=== PATIENT | male | born 1950 | race Caucasian/White ===

== ENCOUNTER 2019-12-15 16:28 | Emergency (ER) | payer MEDICARE ==
--- NOTE | 2019-12-15 16:51 | ED ---
Lower Extremity Injury HPI - General Chief Complaint: Allergic Reaction Stated Complaint: Possible Hip Dislocation Time Seen by Provider: 12/15/19 16:38 Source: RN notes reviewed, old records reviewed - History of Present Illness Initial Comments: This is a 61-year-old male DF for evaluation of left extremity injury pain maybe possible dislocation, x-ray wasn't acting normally at rehab today. Patient states he feels fine now, has no complaints no pain able to move extremities without difficulty MD Complaint: hip injury, thigh injury, knee injury Injury: Hip: Left, Thigh: Left, Knee: Left Place: other (During rehab) Severity: mild Severity scale (1-10): 2 Improves With: immobilization Worsens With: nothing Context: other (Exercise) Other Symptoms: other (None) Associated Symptoms: other (None) - Related Data Allergies Allergy/AdvReac Type Severity Reaction Status Date / Time No Known Allergies Allergy Verified 12/15/19 16:54 Review of Systems ROS Statement: Those systems with pertinent positive or pertinent negative responses have been documented in the HPI. ROS Other: All systems not noted in ROS Statement are negative. General Exam General appearance: alert, in no apparent distress Head exam: Present: atraumatic, normocephalic, normal inspection Eye exam: Present: normal appearance, PERRL, EOMI. Absent: scleral icterus, con junctival injection, periorbital swelling ENT exam: Present: normal exam, mucous membranes moist Neck exam: Present: normal inspection. Absent: tenderness, meningismus, lymphadenopathy Respiratory exam: Present: normal lung sounds bilaterally. Absent: respiratory distress, wheezes, rales, rhonchi, stridor Cardiovascular Exam: Present: regular rate, normal rhythm, normal heart sounds. Absent: systolic murmur, diastolic murmur, rubs, gallop, clicks GI/Abdominal exam: Present: soft, normal bowel sounds. Absent: distended, tenderness, guarding, rebound, rigid Extremities exam: Present: normal inspection, full ROM, normal capillary refill. Absent: tenderness, pedal edema, joint swelling, calf tenderness Back exam: Present: normal inspection Neurological exam: Present: alert, oriented X3, CN II-XII intact Psychiatric exam: Present: normal affect, normal mood Skin exam: Present: warm, dry, intact, normal color. Absent: rash Course Vital Signs 09/01/20 16:39 Temperature 98.3 F Pulse Rate 72 Respiratory 18 Rate Blood Pressure 132/81 O2 Sat by Pulse 97 Oximetry - Reevaluation(s) Reevaluation #1: 12/15/19 18:25 Medical record is reviewed Reevaluation #2: 12/15/19 18:25 Patient informed of findings and results, questions answered Reevaluation #3: 12/15/19 18:25 Patient without complaint Medical Decision Making - Medical Decision Making 69 male DF for evaluation of possible dislocation versus left exploratory extremity abnormality. No findings found here in the ER patient can be discharged home - Radiology Data Radiology results: report reviewed (X-ray left hip neck left knee is negative for acute disease), image reviewed Disposition Clinical Impression: Normal exam, Lower extremity pain Disposition: HOME SELF-CARE Condition: Good Instructions (If sedation given, give patient instructions): Leg Pain (ED), Knee Pain (ED) Is patient prescribed a controlled substance at d/c from ED?: No Referrals: None,Stated [Primary Care Provider] - 1-2 days
[2019-12-15 16:54] VITALS: RESP 18; TEMP 98.3
--- NOTE | 2019-12-15 17:55 | XR ---
EXAMINATION TYPE: XR knee complete LT DATE OF EXAM: 12/15/2019 COMPARISON: NONE HISTORY: Knee pain TECHNIQUE: 3 views FINDINGS: I see no fracture nor dislocation. Joint spaces are normal. There is no sign of knee joint effusion. IMPRESSION: Negative left knee exam.
--- NOTE | 2019-12-15 18:03 | XR ---
EXAMINATION TYPE: XR Hip LT and AP Pelvis DATE OF EXAM: 12/15/2019 COMPARISON: NONE HISTORY: Pain TECHNIQUE: 4 views FINDINGS: The pelvic ring is intact. There is left hip prosthesis. Components are in anatomic positio n. Sacroiliac joints appear intact. There is no evidence of a fracture. IMPRESSION: No acute abnormality of the pelvis and left hip.
[2019-12-15 19:51] VITALS: BP 138/82; PULSE 74
== END 2019-12-15 19:50 | disposition home or self-care (01) ==
LOC: EC 16:28
DX: Z00.01 Encounter for general adult medical examination with abnormal findings (principal); M79.606 Pain in leg, unspecified
CPT/HCPCS: 73502; 99284

== ENCOUNTER 2019-12-26 17:36 | Emergency (ER) | payer MEDICARE ==
[2019-12-26 17:46] VITALS: RESP 16; TEMP 97.5
[2019-12-26] MEDS ORDERED: KETOROLAC 15 MG/ML 1 ML VIAL IM STA (17:56)
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
--- NOTE | 2019-12-26 18:26 | XR ---
EXAMINATION TYPE: XR Hip LT and AP Pelvis DATE OF EXAM: 12/26/2019 COMPARISON: 12/15/2019 HISTORY: Pain TECHNIQUE: 4 views FINDINGS: The pelvic ring is intact. There is left hip prosthesis. Components appear in anatomic posi tion. Sacroiliac joints appear intact. IMPRESSION: No acute abnormality of the pelvis and left hip. No change compared to old exam.
--- NOTE | 2019-12-26 18:27 | XR ---
EXAMINATION TYPE: XR knee complete LT DATE OF EXAM: 12/26/2019 COMPARISON: 12/15/2019 HISTORY: Knee pain TECHNIQUE: 3 views FINDINGS: I see no fracture nor dislocation. Joint spaces are fairly normal. There is no sign of join t effusion. IMPRESSION: Negative left knee exam. No change.
[2019-12-26] MEDS ORDERED: ACET/COD 300 MG/30 MG STARTER PACK 6 TAB BTL PO STA (18:39)
[2019-12-26 18:53] VITALS: BP 143/102; PULSE 65
== END 2019-12-26 18:56 | disposition home or self-care (01) ==
LOC: EC 17:36
DX: S83.92XA Sprain of unspecified site of left knee, initial encounter (principal); M25.262 Flail joint, left knee; Z96.642 Presence of left artificial hip joint; X58.XXXA Exposure to other specified factors, initial encounter
CPT/HCPCS: 73502; 73562; 99284; 96372; J1885

== ENCOUNTER 2019-12-30 14:12 | Emergency (ER) | payer MEDICARE ==
[2019-12-30 14:16] VITALS: TEMP 98.9
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
[2019-12-30] MEDS ORDERED: ACET/COD 300 MG/30 MG STARTER PACK 6 TAB BTL PO STA (15:35)
[2019-12-30 15:44] VITALS: BP 123/79; PULSE 80; RESP 18
== END 2019-12-30 16:44 | disposition home or self-care (01) ==
LOC: EC 14:12
DX: M25.562 Pain in left knee (principal); Z96.642 Presence of left artificial hip joint; Z87.828 Personal history of other (healed) physical injury and trauma
CPT/HCPCS: 99283

== ENCOUNTER 2020-01-04 15:30 | Emergency (ER) | payer MEDICARE ==
[2020-01-04 15:39] VITALS: RESP 18
[2020-01-04] MEDS ORDERED: HYDROcodone/APAP 5-325MG 1 EACH TAB PO STA (16:39)
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
[2020-01-04 16:58] VITALS: BP 137/88; PULSE 68; TEMP 97.9
== END 2020-01-04 17:32 | disposition home or self-care (01) ==
LOC: EC 15:30
DX: M25.562 Pain in left knee (principal); Z96.642 Presence of left artificial hip joint
CPT/HCPCS: 99283

== ENCOUNTER 2020-01-28 18:58 | Emergency (ER) | payer MEDICARE ==
[2020-01-28 19:13] VITALS: TEMP 98.5
[2020-01-28 19:18] VITALS: BP 131/95; PULSE 72; RESP 16
[2020-01-28] MEDS ORDERED: KETOROLAC 15 MG/ML 1 ML VIAL IVP STA (19:25)
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
== END 2020-01-28 20:00 | disposition home or self-care (01) ==
LOC: EC 18:58
DX: M25.562 Pain in left knee (principal); Z96.642 Presence of left artificial hip joint
CPT/HCPCS: 99283; 96374; J1885

== ENCOUNTER → 2020-03-05 | Outpatient (CLI) | payer MEDICARE ==
--- NOTE | 2020-03-06 00:04 | MR ---
EXAMINATION TYPE: MR knee LT wo con DATE OF EXAM: 03/05/2020 COMPARISON: Radiographs 12/26/2019. HISTORY: Left knee pain TECHNIQUE: Multiplanar, multisequence imaging of the left knee is performed without IV contrast. FINDINGS: MEDIAL MENISCUS: Anterior and posterior horns are intact without tear. LATERAL MENISCUS: Anterior and posterior horns are intact without tear. CRUCIATE LIGAMENTS: The anterior and posterior cruciate ligaments are intact and unremarkable. COLLATERAL LIGAMENTS: Multiple high T1/high T2 loose bodies deep to the popliteal muscle belly. Other cantu the medial collateral ligament and lateral collateral ligament complex are intact and unremarkab le. EXTENSOR MECHANISM: Visualized quadriceps and patellar tendons are intact. EFFUSION: Small knee joint effusion. POPLITEAL CYST: Trace popliteal/bowens cyst. TRICOMPARTMENT SPACES/CARTILAGE: Mild to moderate thinning of the tricompartmental articular cartilag e with overlying small to moderate sized partial thickness chondral defects, most notable of the mart llofemoral compartment. BONE MARROW SIGNAL: 1.5 x 0.6 cm lobulated cystic structure in the fibular head without aggressive fe atures. No bony destruction, endosteal scalloping or periosteal reaction. Remainder of the bone marro w signal is unremarkable. OTHER: No additional significant abnormality is appreciated. IMPRESSION: Noncalcific loose bodies deep to the popliteal muscle, may relate to prior partial thickness injury. 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 No definite meniscal tear.
== END | disposition home or self-care (01) ==
LOC: RADMRIMAIN 09:59
PROVIDERS: ATTEND Orthopaedic Surgery
DX: M17.12 Unilateral primary osteoarthritis, left knee (principal); M95.8 Other specified acquired deformities of musculoskeletal system; M23.42 Loose body in knee, left knee

== ENCOUNTER 2020-03-22 17:36 | Emergency (ER) | payer MEDICARE ==
[2020-03-22 17:42] VITALS: RESP 18; TEMP 98.3
[2020-03-22] MEDS ORDERED: ACET/COD 300 MG/30 MG STARTER PACK 6 TAB BTL PO STA (17:53)
--- NOTE | 2020-03-22 17:56 | ED ---
Lower Extremity Injury HPI - General Chief Complaint: Extremity Injury, Lower Stated Complaint: left knee pain Time Seen by Provider: 03/22/20 17:41 Source: patient, EMS, RN notes reviewed Mode of arrival: EMS Limitations: no limitations - History of Present Illness Initial Comments: 69-year-old male presents emergency Department chief complaint of knee pain. Patient had intermittent episodes of this knee pain. Patient states that has now resolved but states hour ago he is in extreme pain. Patient reportedly [facility] Denn[facility] was told nothing was wrong. Patient states he cannot tolerate the pain when it comes. Patient denies any back pain no bowel bladder incontinence or retention. No centimeters is no other compl aints. - Related Data Previous Rx's Medication Instructions Recorded Naproxen [EC-Naproxen] 500 mg PO BID #20 tablet. 12/26/19 Ibuprofen [Motrin] 600 mg PO Q8HR PRN #30 tab 01/28/20 Allergies Allergy/AdvReac Type Severity Reaction Status Date / Time No Known Allergies Allergy Verified 01/28/20 19:13 Review of Systems ROS Statement: Those systems with pertinent positive or pertinent negative responses have been documented in the HPI. ROS Other: All systems not noted in ROS Statement are negative. Past Medical History Past Medical History: No Reported History Additional Past Medical History / Comment(s): TBI accident in 1972 History of Any Multi-Drug Resistant Organisms: None Reported Past Surgical History: Joint Replacement Additional Past Surgical History / Comment(s): pt states left hip replacement approx 20 years ago, right and left foot sugery due to tendon cut Past Psychological History: No Psychological Hx Reported Smoking Status: Never smoker Past Alcohol Use History: Rare Past Drug Use History: None Reported General Exam Limitations: no limitations General appearance: alert, in no apparent distress Head exam: Present: atraumatic, normocephalic, normal inspection Neck exam: Present: normal inspection, full ROM. Absent: tenderness, meningismus, lymphadenopathy Respiratory exam: Present: normal lung sounds bilaterally. Absent: respiratory distress, wheezes, rales, rhonchi, stridor Cardiovascular Exam: Present: regular rate, normal rhythm, normal heart sounds. Absent: systolic murmur, diastolic murmur, rubs, gallop, clicks Extremities exam: Present: other (Left knee full range of motion neurovascular intact no swelling or erythema pulses equal bilaterally) Back exam: Present: full ROM. Absent: tenderness Neurological exam: Present: alert, oriented X3 Skin exam: Present: warm, dry, intact, normal color. Absent: rash Course Vital Signs 03/22/20 17:37 Temperature 98.3 F Pulse Rate 70 Respiratory 18 Rate Blood Pressure 161/89 O2 Sat by Pulse 98 Oximetry Medical Decision Making - Medical Decision Making Patient had multiple x-rays, MRI reportedly as normal though I do not have these records. Patient is asymptomatic. Patient advised to follow-up for recheck, follow-up of left knee pain. Disposition Clinical Impression: Left knee pain Disposition: HOME SELF-CARE Condition: Stable Instructions (If sedation given, give patient instructions): Knee Pain (ED) Additional Instructions: Please return to the Emergency Department if symptoms worsen or any other concerns. Is patient prescribed a controlled substance at d/c from ED?: No Referrals: None,Stated [Primary Care Provider] - 1-2 days Davon Mckeon DO [Doctor of Osteopathic Medicine] - 1-2 days Time of Disposition: 17:55
[2020-03-22 18:28] VITALS: BP 126/80; PULSE 62
== END 2020-03-22 18:26 | disposition home or self-care (01) ==
LOC: EC 17:36
DX: M25.562 Pain in left knee (principal); Z96.642 Presence of left artificial hip joint
CPT/HCPCS: 99284

== ENCOUNTER 2020-04-05 19:05 | Emergency (ER) | payer MEDICARE ==
[2020-04-05 19:16] VITALS: RESP 17; TEMP 97.8
[2020-04-05] MEDS ORDERED: KETOROLAC 15 MG/ML 1 ML VIAL IM STA (19:21)
--- NOTE | 2020-04-05 19:32 | ED ---
Extremity Problem HPI - General Chief complaint: Extremity Problem,Nontraumatic Stated complaint: Knee Pain Time Seen by Provider: 04/05/20 19:06 Source: patient, EMS Mode of arrival: EMS - History of Present Illness Initial comments: 69 year-old male patient presents to the emergency department for evaluation of left knee and leg pain. Patient has been coming to the emergency department frequently for this. He has seen orthopedics has had multiple xrays and an MRI. Patient is unsure of the results. Patient denies any new injury to the leg. States it hurts to walk or bend the knee. He does report new calf pain today. Denies any obvious swelling. Denies numbness or tingling to the leg. Denies any discoloration or bruising. He had it wrapped in an kolby wrap upon arrival. Patient denies any headache, neck pain, back pain, chest pain, shortness of breath, dizziness, weakness, abdominal pain, nausea, vomiting, or difficulties with bowel movements or urination. - Related Data Previous Rx's Medication Instructions Recorded Naproxen [EC-Naproxen] 500 mg PO BID #20 tablet. 12/26/19 Ibuprofen [Motrin] 600 mg PO Q8HR PRN #30 tab 01/28/20 Allergies Allergy/AdvReac Type Severity Reaction Status Date / Time No Known Allergies Allergy Verified 01/28/20 19:13 Review of Systems ROS Statement: Those systems with pertinent positive or pertinent negative responses have been documented in the HPI. ROS Other: All systems not noted in ROS Statement are negative. Past Medical History Past Medical History: No Reported History Additional Past Medical History / Comment(s): TBI accident in 1972 History of Any Multi-Drug Resistant Organisms: None Reported Past Surgical History: Joint Replacement Additional Past Surgical History / Comment(s): pt states left hip replacement approx 20 years ago, right and left foot sugery due to tendon cut Past Psychological History: No Psychological Hx Reported Smoking Status: Never smoker Past Alcohol Use History: Rare Past Drug Use History: None Reported General Exam General appearance: alert, in no apparent distress, other (This is a well- developed, well-nourished adult male patient in no acute distress. Vital signs upon presentation are temperature 97.8F, pulse 74, respirations 17, blood pressure 164/99, pulse ox 97% on room air.) Respiratory exam: Present: normal lung sounds bilaterally. Absent: respiratory distress, wheezes, rales, rhonchi, stridor Cardiovascular Exam: Present: regular rate, normal rhythm, normal heart sounds. Absent: systolic murmur, diastolic murmur, rubs, gallop, clicks Extremities exam: Present: normal inspection, full ROM, normal capillary refill, other (Skin is pink, warm, dry. mild swelling to left leg. Pedal and PT pulses 2+. Full range of motion of the knee is intact. ). Absent: tenderness, pedal edema, joint swelling, calf tenderness Neurological exam: Present: alert, oriented X3, CN II-XII intact Psychiatric exam: Present: normal affect, normal mood Skin exam: Present: warm, dry, intact, normal color. Absent: rash Course Vital Signs 04/05/20 19:13 Temperature 97.8 F Pulse Rate 74 Respiratory 17 Rate Blood Pressure 164/99 O2 Sat by Pulse 97 Oximetry Medical Decision Making - Medical Decision Making 69-year-old male patient presents to the emergency department today for e valuation of left knee and left leg pain. Patient has been frequently coming to the emergency department for similar symptoms. He is followed up with orthopedics multiple times did have multiple x-rays and an MRI performed. I do not have results this patient is unsure of the results. He currently is a has no pain but did have an Kolby wrap after on the calf. When questioned about this he states that it was hurting today and this is new for him. Ultrasound was odered of THE LEG TO RULE OUT DVT, WAS NEGATIVE. WE DISCHARGED FOLLOW UP WITH HIS PRIMARY CARE PHYSICIAN ROAD HOGGER OPERATOR FOR FURTHER EVALUATION. HE VERBALIZES UNDERSTANDING AND AGREES WITH THIS PLAN. - Radiology Data Radiology results: report reviewed, image reviewed Ultrasound of the left lower extremity was obtained. Report was reviewed in its entirety. Impression by Dr. Burger shows no sign of deep vein thrombosis in the left leg. Disposition Clinical Impression: Knee pain Disposition: HOME SELF-CARE Condition: Good Instructions (If sedation given, give patient instructions): Knee Pain (ED) Additional Instructions: Follow up with the campaign management specialist for further evaluation as soon as possible. Return to the emergency department for any new, worsening, or concerning symptoms. Is patient prescribed a controlled substance at d/c from ED?: No Referrals: None,Stated [Primary Care Provider] - 1-2 days Time of Disposition: 20:32
--- NOTE | 2020-04-05 20:22 | US ---
EXAMINATION TYPE: US venous doppler duplex LE LT DATE OF EXAM: 04/05/2020 8:13 PM COMPARISON: NONE CLINICAL HISTORY: Left calf pain. Left calf pain. Patient poor historian. SIDE PERFORMED: Left TECHNIQUE: The lower extremity deep venous system is examined utilizing real time linear array sonog bridgette with graded compression, doppler sonography and color-flow sonography. VESSELS IMAGED: Common Femoral Vein Deep Femoral Vein Greater Saphenous Vein * Femoral Vein Popliteal Vein Small Saphenous Vein * Proximal Calf Veins (* superficial vessels) Left Leg: No evidence of DVT in veins imaged at this time from prox calf veins to CFV/GSV. IMPRESSION: No sign of deep vein thrombosis in the left leg.
[2020-04-05 21:07] VITALS: BP 154/87; PULSE 75
== END 2020-04-05 21:14 | disposition home or self-care (01) ==
LOC: EC 19:05
DX: M25.562 Pain in left knee (principal); Z96.642 Presence of left artificial hip joint; Z98.890 Other specified postprocedural states
CPT/HCPCS: 99284

== ENCOUNTER 2020-06-02 20:02 | Emergency (ER) | payer MEDICARE ==
[2020-06-02 20:22] VITALS: BP 127/67; PULSE 70; RESP 19; TEMP 98.7
--- NOTE | 2020-06-02 20:46 | ED ---
Extremity Problem HPI - General Chief complaint: Extremity Problem,Nontraumatic Stated complaint: Knee Pain Time Seen by Provider: 06/02/20 20:17 Source: patient, EMS Mode of arrival: EMS Limitations: no limitations - History of Present Illness Initial comments: 69-year-old male presents to the emergency department with a chief complaint of left knee pain. He reports history of chronic knee pain and it feels like it is "locking up". States he can happen whenever leading or resting. He states today he was attempting to tie his shoe when his knee felt "wobbly". He states it was a sudden onset of sharp pain without radiation which is sent resolved. States this only lasted for several minutes. States she has an missile inspector preflight multiple times for this issue with no findings. States urine had 2 MRIs with an insurance law specialist which were unremarkable. Patient states he recently moved to the area and is looking for a primary care physician. Patient was requesting recommendations for an insurance law specialist and primary care physician. He denies any numbness or tingling to the left lower extremity. Denies any erythema swelling of the left knee. Denies any injuries. - Related Data Previous Rx's Medication Instructions Recorded Naproxen [EC-Naproxen] 500 mg PO BID #20 tablet. 12/26/19 Ibuprofen [Motrin] 600 mg PO Q8HR PRN #30 tab 01/28/20 Allergies Allergy/AdvReac Type Severity Reaction Status Date / Time No Known Allergies Allergy Verified 06/02/20 20:22 Review of Systems ROS Statement: Those systems with pertinent positive or pertinent negative responses have been documented in the HPI. ROS Other: All systems not noted in ROS Statement are negative. Past Medical History Past Medical History: No Reported History Additional Past Medical History / Comment(s): TBI accident in 1972 History of Any Multi-Drug Resistant Organisms: None Reported Past Surgical History: Joint Replacement Additional Past Surgical History / Comment(s): pt states left hip replacement approx 20 years ago, right and left foot sugery due to tendon cut Past Psychological History: No Psychological Hx Reported Smoking Status: Never smoker Past Alcohol Use History: Rare Past Drug Use History: None Reported General Exam Limitations: no limitations General appearance: alert, in no apparent distress Head exam: Present: atraumatic, normocephalic, normal inspection Eye exam: Present: normal appearance, PERRL, EOMI Pupils: Present: normal accommodation ENT exam: Present: normal exam, normal oropharynx, mucous membranes moist, TM's normal bilaterally, normal external ear exam Neck exam: Present: normal inspection, full ROM. Absent: tenderness Respiratory exam: Present: normal lung sounds bilaterally. Absent: respiratory distress Cardiovascular Exam: Present: regular rate, normal rhythm, normal heart sounds Extremities exam: Present: normal inspection (No signs of swelling, erythema or ecchymosis to the left knee.), full ROM (Full range of motion left knee. Negative anterior drawer or Mo.), normal capillary refill, other. Absent: tenderness, pedal edema, joint swelling, calf tenderness Back exam: Present: normal inspection, full ROM. Absent: tenderness Neurological exam: Present: alert, oriented X3 Psychiatric exam: Present: normal affect, normal mood Skin exam: Present: warm, dry, intact, normal color Course Vital Signs 06/02/20 20:17 Temperature 98.7 F Pulse Rate 70 Respiratory 19 Rate Blood Pressure 127/67 O2 Sat by Pulse 98 Oximetry Medical Decision Making - Medical Decision Making 69-year-old male presents to emergency Department with a chief complaint of left knee pain. On physical examination, patient is resting comfortably. There is no tenderness to the knee. Normal in appearance. He has full range of motion with negative Mo and anterior drawer test. Patient said multiple x-rays which are reviewed and they were negative. He is also had an MRI with no acute findings. I gave the patient recommendations for local insurance law specialist as well as primary care physician. Strict return parameters were thoroughly dis cussed the patient understanding and agreeable. Case discussed with Dr. Winchester. Disposition Clinical Impression: Left knee pain Disposition: HOME SELF-CARE Condition: Stable Instructions (If sedation given, give patient instructions): Knee Pain (ED) Additional Instructions: establish a primary care physician. Also follow-up with insurance law specialist. Please return to the Emergency Department if symptoms worsen or any other concerns. Is patient prescribed a controlled substance at d/c from ED?: No Referrals: None,Stated [Primary Care Provider] - 1-2 days Austyn Braun MD [STAFF PHYSICIAN] - 1-2 days Austyn Davey MD [Medical Doctor] - 1-2 days Yadi Rand MD [STAFF PHYSICIAN] - 1-2 days Reynaldo Barrientos MD [STAFF PHYSICIAN] - 1-2 days Time of Disposition: 20:45
== END 2020-06-02 21:28 | disposition home or self-care (01) ==
LOC: EC 20:02
DX: M25.562 Pain in left knee (principal); Z96.642 Presence of left artificial hip joint
CPT/HCPCS: 99283

== ENCOUNTER 2020-06-17 01:35 | Emergency (ER) | payer MEDICARE ==
[2020-06-17 01:49] VITALS: BP 171/123; PULSE 68; RESP 18; TEMP 98.5
[2020-06-17] MEDS ORDERED: traMADol 50 MG TAB PO STA (01:59)
[2020-06-17] MEDS ORDERED: ACETAMINOPHEN TAB 325 MG TAB PO STA (02:03)
--- NOTE | 2020-06-17 02:03 | ED ---
Fall HPI - General Chief Complaint: Fall Stated Complaint: Fall Time Seen by Provider: 06/17/20 01:40 Source: patient, EMS Mode of arrival: EMS - History of Present Illness Initial Comments: 69-year-old male presents to the emergency department with a chief complaint of a fall. 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 Patient states he uses a walker to ambulate throughout the house. Patient reports history of frequent falls and the one today occurred about one hour prior to arrival. Patient was brought to the ED via EMS. Patient states his left knee weaken her, he lost balance and went on to the ground. Does report hitting his head but denies loss of consciousness. Patient states he is not worried about that injury. His the concern is the pain in his left knee. He denies any numbness or tingling. States the leg is spasming and only feels better in the flexed position. Reports the pain is exacerbated with knee ext ension. - Related Data Previous Rx's Medication Instructions Recorded Naproxen [EC-Naproxen] 500 mg PO BID #20 tablet. 12/26/19 Ibuprofen [Motrin] 600 mg PO Q8HR PRN #30 tab 01/28/20 Allergies Allergy/AdvReac Type Severity Reaction Status Date / Time No Known Allergies Allergy Verified 06/02/20 20:22 Review of Systems ROS Statement: Those systems with pertinent positive or pertinent negative responses have been documented in the HPI. ROS Other: All systems not noted in ROS Statement are negative. Past Medical History Past Medical History: No Reported History Additional Past Medical History / Comment(s): TBI accident in 1972 History of Any Multi-Drug Resistant Organisms: None Reported Past Surgical History: Joint Replacement Additional Past Surgical History / Comment(s): pt states left hip replacement approx 20 years ago, right and left foot sugery due to tendon cut Past Psychological History: No Psychological Hx Reported Smoking Status: Never smoker Past Alcohol Use History: Rare Past Drug Use History: None Reported General Exam Limitations: language barrier, physical limitation General appearance: alert, in no apparent distress Head exam: Present: atraumatic, normocephalic, normal inspection Eye exam: Present: normal appearance, PERRL, EOMI Pupils: Present: normal accommodation ENT exam: Present: normal exam, normal oropharynx, mucous membranes moist Neck exam: Present: normal inspection, full ROM. Absent: tenderness Respiratory exam: Present: normal lung sounds bilaterally. Absent: respiratory distress Cardiovascular Exam: Present: regular rate, normal rhythm, normal heart sounds Extremities exam: Present: normal inspection, tenderness (Infrapatellar tenderness), normal capillary refill, other (Palpable DP and PT bilaterally). Absent: full ROM (Limited range of motion with extension of the left knee) Back exam: Present: normal inspection, full ROM Neurological exam: Present: alert, oriented X3 Psychiatric exam: Present: normal affect, normal mood Skin exam: Present: warm, dry, intact, normal color Course Vital Signs 06/17/20 01:41 Temperature 98.5 F Pulse Rate 68 Respiratory 18 Rate Blood Pressure 171/123 O2 Sat by Pulse 98 Oximetry Medical Decision Making - Medical Decision Making 69-year-old male presents to emergency department with a chief complaint of of left knee pain. Physical examination is unremarkable. Patient initially kept his leg/knee flexed. Patient was given tramadol and Tylenol. On reevaluation, patient was able to fully extend the leg. He is neurovascularly intact. X-rays negative. Patient was offered CT imaging of the head, he declined. Patient will be discharged with outpatient follow-up. Also given Tylenol 3 starter pack. Case discussed with Disposition Clinical Impression: Fall, Left knee pain Disposition: HOME SELF-CARE Condition: Stable Instructions (If sedation given, give patient instructions): Fall Prevention (ED) Additional Instructions: Please return to the Emergency Department if symptoms worsen or any other concerns. Is patient prescribed a controlled substance at d/c from ED?: No Referrals: None,Stated [Primary Care Provider] - 1-2 days Time of Disposition: 02:49
--- NOTE | 2020-06-17 02:32 | XR ---
EXAM: XR Left Knee, 3 Views CLINICAL HISTORY: ITS.REASON XR Reason: lfet knee injury TECHNIQUE: Three views of the left knee. COMPARISON: No relevant prior studies available. FINDINGS: Bones/joints: No acute fracture or traumatic malalignment. Soft tissues: Unremarkable. Vasculature: Vascular calcifications. IMPRESSION: No acute fracture or traumatic malalignment.
[2020-06-17] MEDS ORDERED: ACET/COD 300 MG/30 MG STARTER PACK 6 TAB BTL PO STA (02:41)
== END 2020-06-17 03:33 | disposition home or self-care (01) ==
LOC: EC 01:35
DX: M25.562 Pain in left knee (principal); R29.6 Repeated falls; Z79.1 Long term (current) use of non-steroidal anti-inflammatories (NSAID); Z96.642 Presence of left artificial hip joint; Z87.820 Personal history of traumatic brain injury; W18.30XA Fall on same level, unspecified, initial encounter; Z91.81 History of falling; Y92.009 Unspecified place in unspecified non-institutional (private) residence as the place of occurrence of the external cause
CPT/HCPCS: 99285

== ENCOUNTER 2020-07-15 13:12 | Emergency (ER) | payer MEDICARE ==
[2020-07-15 13:25] VITALS: RESP 20
--- NOTE | 2020-07-15 14:09 | XR ---
EXAMINATION TYPE: XR knee complete LT DATE OF EXAM: 07/15/2020 COMPARISON: 06/17/2020 HISTORY: Fall TECHNIQUE: 3 view left knee FINDINGS: No significant joint effusion is evident. Some vascular calcification may be present. Media l lateral compartment joint spaces are preserved. No acute fractures or dislocations are evident. Follow up exams can be performed 7-10 days from acute trauma for continued pain. IMPRESSION: 1. Normal three-view left knee
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
[2020-07-15 19:57] VITALS: BP 155/72; PULSE 62; TEMP 98.2
== END 2020-07-15 15:45 | disposition home or self-care (01) ==
LOC: EC 13:12
DX: S83.92XA Sprain of unspecified site of left knee, initial encounter (principal); I10 Essential (primary) hypertension; Z79.899 Other long term (current) drug therapy; W18.2XXA Fall in (into) shower or empty bathtub, initial encounter
CPT/HCPCS: 99283

== ENCOUNTER 2020-09-01 15:44 | Emergency (ER) | payer MEDICARE ==
[2020-09-01 16:13] VITALS: BP 145/99; PULSE 83; RESP 18; TEMP 98
[2020-09-01] MEDS ORDERED: KETOROLAC 15 MG/ML 1 ML VIAL IM STA (17:10)
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
--- NOTE | 2020-09-01 17:34 | XR ---
EXAMINATION TYPE: XR knee complete LT DATE OF EXAM: 09/01/2020 CLINICAL HISTORY: There is TECHNIQUE: Three views of the left knee are obtained. COMPARISON: None. FINDINGS: There is no acute fracture/dislocation. The tri-compartment joint spaces appear within no rmal limits. The overlying soft tissue appears unremarkable. IMPRESSION: There is no acute fracture or dislocation ICD 10 NO FRACTURE, INITIAL EVALUATION
[2020-09-01] MEDS ORDERED: ACET/COD 300 MG/30 MG STARTER PACK 6 TAB BTL PO STA (17:52)
== END 2020-09-01 18:02 | disposition home or self-care (01) ==
LOC: EC 15:44
DX: M25.562 Pain in left knee (principal); Z87.820 Personal history of traumatic brain injury
CPT/HCPCS: 73562; 99284; 96372; J1885

== ENCOUNTER 2020-09-02 17:02 | Emergency (ER) | payer MEDICARE ==
[2020-09-02 17:56] VITALS: TEMP 97.8
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
--- NOTE | 2020-09-02 20:45 | CT ---
Result: History: Follow-up knee pain. Comparison: Radiographs 09/01/2020. Technique: Noncontrast axial CT images of the left knee were obtained with images provided in bone an d soft tissue algorithm. Coronal, sagittal and 3-D reformats were provided and reviewed. Automated dose control was used for this exam. Findings: The bone mineralization is age-appropriate. There is subtle cortical break of the proximal tibial diametaphysis at the lateral aspect. The remain ing osseous structures are in anatomic alignment. There is small knee joint effusion. There is mild soft tissue edema about the proximal leg. Impression: Subtle cortical break of the proximal tibia at the lateral aspect, suspicious for nondisplaced fractu re. MRI may be obtained for confirmation, otherwise repeat radiographs in 7-10 days.
[2020-09-02 21:13] VITALS: BP 136/87; PULSE 88; RESP 16
== END 2020-09-02 21:13 | disposition home or self-care (01) ==
LOC: EC 17:02
DX: S82.192A Other fracture of upper end of left tibia, initial encounter for closed fracture (principal); Z87.820 Personal history of traumatic brain injury; W18.30XA Fall on same level, unspecified, initial encounter
CPT/HCPCS: 99284

== ENCOUNTER 2020-09-04 10:54 | Emergency (ER) | payer MEDICARE ==
[2020-09-04 11:11] VITALS: BP 151/106; PULSE 85; RESP 18; TEMP 98.7
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
[2020-09-04] MEDS ORDERED: ACET/COD 300 MG/30 MG STARTER PACK 6 TAB BTL PO STA (12:39)
--- NOTE | 2020-09-04 12:52 | XR ---
EXAMINATION TYPE: XR knee complete LT DATE OF EXAM: 09/04/2020 CLINICAL HISTORY: Recent fall injury with more prominent pain TECHNIQUE: Three views of the left knee are obtained. COMPARISON: X-ray [address] study 2 days ago. FINDINGS: There is no new acute fracture/dislocation evident in left knee. Moderate narrowing patell ofemoral compartment with mild spurring redemonstrated. Persistent mild to moderate narrowing medial tibiofemoral compartment. Stable small suprapatellar joint effusion. IMPRESSION: There is no new acute fracture or dislocation in the left knee.
== END 2020-09-04 13:54 | disposition home or self-care (01) ==
LOC: EC 10:54
DX: S82.142A Displaced bicondylar fracture of left tibia, initial encounter for closed fracture (principal); W01.0XXA Fall on same level from slipping, tripping and stumbling without subsequent striking against object, initial encounter

== ENCOUNTER 2020-09-05 14:05 | Emergency (ER) | payer MEDICARE ==
[2020-09-05 14:15] VITALS: BP 132/79; PULSE 70; RESP 18; TEMP 98.1
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
--- NOTE | 2020-09-05 15:07 | XR ---
EXAMINATION TYPE: XR knee complete LT DATE OF EXAM: 09/05/2020 CLINICAL HISTORY: Pain and swelling. TECHNIQUE: Three views of the left knee are obtained. COMPARISON: Left knee x-ray from yesterday. FINDINGS: There is no acute fracture/dislocation evident in left knee. [id number] narrowing me dial tibiofemoral and patellofemoral compartments are redemonstrated. Persistent small suprapatellar joint effusion. Posterior arterial vascular calcification in the popliteal artery redemonstrated. IMPRESSION: As above. No significant change from one day earlier
== END 2020-09-05 15:53 | disposition home or self-care (01) ==
LOC: EC 14:05
DX: S82.142D Displaced bicondylar fracture of left tibia, subsequent encounter for closed fracture with routine healing (principal); M79.672 Pain in left foot; X58.XXXD Exposure to other specified factors, subsequent encounter
CPT/HCPCS: 99283

== ENCOUNTER 2020-09-13 02:40 | Emergency (ER) | payer MEDICARE ==
[2020-09-13] MEDS ORDERED: MORPHINE SULFATE 4 MG/ML SYRINGE IVP STA (02:44)
[2020-09-13 02:56] VITALS: RESP 18; TEMP 98.2
--- NOTE | 2020-09-13 03:00 | XR ---
EXAM: XR Left Knee, 2 Views CLINICAL HISTORY: ITS.REASON XR Reason: Knee pain TECHNIQUE: Three views of the left knee. COMPARISON: No relevant prior studies available. FINDINGS: Bones/joints: No acute fracture. No dislocation. Mild medial compartment joint space loss without spurring. Soft tissues: Unremarkable. IMPRESSION: No acute osseous abnormalities.
[2020-09-13] MEDS ORDERED: ACET/COD 300 MG/30 MG STARTER PACK 6 TAB BTL PO STA (03:05)
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
[2020-09-13 03:53] VITALS: BP 155/86; PULSE 78
== END 2020-09-13 03:53 | disposition home or self-care (01) ==
LOC: EC 02:40
DX: S82.142A Displaced bicondylar fracture of left tibia, initial encounter for closed fracture (principal); X58.XXXA Exposure to other specified factors, initial encounter
CPT/HCPCS: 99283 ×2; 73560; 96374; L1830; J2270

== ENCOUNTER 2020-09-30 02:17 | Emergency (ER) | payer MEDICARE ==
[2020-09-30 02:32] VITALS: BP 151/104; PULSE 62; RESP 20; TEMP 97.6
[2020-09-30] MEDS ORDERED: IBUPROFEN 600 MG TAB PO STA (02:47)
[2020-09-30] MEDS ORDERED: ACET/COD 300 MG/30 MG STARTER PACK 6 TAB BTL PO STA (02:47)
[2020-09-30] MEDS ORDERED: Acetaminophen-Codeine 300-30mg TAB PO STA (02:47)
[2020-09-30] MEDS ORDERED: IBUPROFEN 600 MG STARTER PACK 4 TAB BTL PO STA (02:47)
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
== END 2020-09-30 03:19 | disposition home or self-care (01) ==
LOC: EC 02:17
DX: M25.562 Pain in left knee (principal)
CPT/HCPCS: 99283

== ENCOUNTER 2020-12-09 17:08 | Emergency (ER) | payer MEDICARE ==
[2020-12-09 17:24] VITALS: RESP 18; TEMP 98
[2020-12-09] MEDS ORDERED: lisinopriL 20 MG TAB PO STA (18:08)
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
[2020-12-09 18:46] VITALS: PULSE 69
[2020-12-09 18:54] VITALS: BP 172/106
== END 2020-12-09 18:52 | disposition home or self-care (01) ==
LOC: EC 17:08
DX: H11.32 Conjunctival hemorrhage, left eye (principal); I10 Essential (primary) hypertension; Z79.899 Other long term (current) drug therapy
CPT/HCPCS: 99283